=== PATIENT | male | born 1995 | race African-American/Black ===

== ENCOUNTER 2016-10-12 08:08 | Emergency (ER) | payer SELFPAY ==
[~2016-10-12] VITALS: Ht 182.9 cm; Wt 108.0 kg
[~2016-10-12 08:08] MED LIST: IBUP-232 PO
[2016-10-12 08:10] VITALS: BP 124/83; PULSE 74; RESP 15; TEMP 98.2; O2SAT 96
[2016-10-12] MEDS ORDERED: SODIUM CHLOR 0.9% 1000 ML INJ 1,000 ML IV SCH (08:23)
--- NOTE | 2016-10-12 08:27 | PD ---
HPI Chief Complaint: Syncope/Near-Syncope Time Seen by Provider: 08:20 Travel History International Travel<30 days: No Contact w/Intl Traveler<30days: No Traveled to known affect area: No History of Present Illness HPI 21-year-old male here for evaluation of nausea, vomiting, diarrhea, abdominal pain, and syncopal episode. The patient states that while getting ready for work this morning he was using the restroom and while having a bowel movement he had a syncopal episode. He reports that he woke up on the ground. He denies sustaining any injury. No head or neck pain. He states that he walked into another room and had another syncopal episode, again not sustaining any injury. He is complaining of lower abdominal discomfort which is moderate, worse with movement and palpation. No history of abdominal surgeries. No known history of cardiac disease. No history of syncopal episodes. No fevers, chills, cough, or recent illness. PFSH Past Medical History Anxiety: Yes Diabetes: No Diminished Hearing: No Immunizations Current: Yes Social History Alcohol Use: No Tobacco Use: No Substance Use: No Allergies-Medications (Allergen,Severity, Reaction): Coded Allergies: Mushroom (Verified Allergy, Severe, Nausea/Vomiting, 10/12/16) Reported Meds & Prescriptions Reported Meds & Active Scripts Active No Active Prescriptions or Reported Medications Review of Systems Except as stated in HPI: all other systems reviewed are Neg Physical Exam Narrative GENERAL: Well-developed, well-nourished, comfortable, no acute distress. SKIN: Warm and dry. No lacerations, abrasions, or ecchymosis. HEAD: Atraumatic. Normocephalic. EYES: Pupils equal, round, 3 mm, reactive to light. No scleral icterus. No injection or drainage. ENT: Mucous membranes pink and moist. NECK: Trachea midline. No JVD. No midline cervical spine step-off or tenderness. CARDIOVASCULAR: Regular rate and rhythm. RESPIRATORY: No accessory muscle use. Clear to auscultation. Breath sounds equal bilaterally. GASTROINTESTINAL: Abdomen soft, nondistended. Mild lower abdominal tenderness without peritoneal signs. Rest of abdomen is soft and nontender. Normal bowel sounds. MUSCULOSKELETAL: No obvious deformities. No clubbing. No cyanosis. No edema. NEUROLOGICAL: Awake and alert. No obvious cranial nerve deficits. Motor grossly within normal limits. Normal speech. PSYCHIATRIC: Appropriate mood and affect; insight and judgment normal. Data Data Last Documented VS Vital Signs Date Time Temp Pulse Resp B/P Pulse Ox O2 Delivery O2 Flow Rate FiO2 10/12/16 08:29 67 16 119/61 99 Room Air 10/12/16 08:10 98.2 Orders Electrocardiogram (10/12/16 ) Ckmb (Isoenzyme) Profile (10/12/16 08:23) Complete Blood Count With Diff (10/12/16 08:23) Comprehensive Metabolic Panel (10/12/16 08:23) Magnesium (Mg) (10/12/16 08:23) Prothrombin Time / Inr (Pt) (10/12/16 08:23) Act Partial Throm Time (Ptt) (10/12/16 08:23) Troponin I (10/12/16 08:23) Lipase (10/12/16 08:23) Chest, Single Ap (10/12/16 08:23) Ecg Monitoring (10/12/16 08:23) Iv Access Insert/Monitor (10/12/16 08:23) Oximetry (10/12/16 08:23) Sodium Chloride 0.9% Flush (Ns Flush) (10/12/16 08:30) Ct Abd/Pel W Iv Contrast(Rout) (10/12/16 08:23) Ondansetron Inj (Zofran Inj) (10/12/16 08:30) Sodium Chlor 0.9% 1000 Ml Inj (Ns 1000 M (10/12/16 08:23) Ketorolac Inj (Toradol Inj) (10/12/16 08:30) Ct Brain W/O Iv Contrast(Rout) (10/12/16 ) Influenzae A/B Antigen (10/12/16 08:25) Iohexol 350 Inj (Omnipaque 350 Inj) (10/12/16 09:49) CKMB (10/12/16 09:40) CKMB% (10/12/16 09:40) Labs Laboratory Tests Test 10/12/16 10/12/16 08:40 09:40 White Blood Count 7.1 TH/MM3 Red Blood Count 5.00 MIL/MM3 Hemoglobin 13.6 GM/DL Hematocrit 40.8 % Mean Corpuscular Volume 81.7 FL Mean Corpuscular Hemoglobin 27.1 PG Mean Corpuscular Hemoglobin 33.2 % Concent Red Cell Distribution Width 13.9 % Platelet Count 256 TH/MM3 Mean Platelet Volume 7.8 FL Neutrophils (%) (Auto) 43.4 % Lymphocytes (%) (Auto) 43.1 % Monocytes (%) (Auto) 10.2 % Eosinophils (%) (Auto) 2.8 % Basophils (%) (Auto) 0.5 % Neutrophils # (Auto) 3.1 TH/MM3 Lymphocytes # (Auto) 3.1 TH/MM3 Monocytes # (Auto) 0.7 TH/MM3 Eosinophils # (Auto) 0.2 TH/MM3 Basophils # (Auto) 0.0 TH/MM3 CBC Comment DIFF FINAL Differential Comment Prothrombin Time 10.5 SEC Prothromb Time International 1.0 RATIO Ratio Activated Partial 27.3 SEC Thromboplast Time Sodium Level 140 MEQ/L Potassium Level 4.1 MEQ/L Chloride Level 106 MEQ/L Carbon Dioxide Level 26.2 MEQ/L Anion Gap 8 MEQ/L Blood Urea Nitrogen 20 MG/DL Creatinine 0.87 MG/DL Estimat Glomerular Filtration 134 ML/MIN Rate Random Glucose 102 MG/DL Calcium Level 8.0 MG/DL Magnesium Level 1.9 MG/DL Total Bilirubin 0.1 MG/DL Aspartate Amino Transf 19 U/L (AST/SGOT) Alanine Aminotransferase 25 U/L (ALT/SGPT) Alkaline Phosphatase 44 U/L Total Creatine Kinase 296 U/L Troponin I LESS THAN 0.02 NG/ML Total Protein 6.0 GM/DL Albumin 3.2 GM/DL Lipase 112 U/L MDM Medical Decision Making Medical Screen Exam Complete: Yes Emergency Medical Condition: Yes Medical Record Reviewed: Yes Interpretation(s) EKG: Sinus, rate 67, normal axis, normal intervals, early repolarization, no acute ischemic abnormality, unchanged from prior Differential Diagnosis Gastroenteritis, dehydration, viral illness, metabolic abnormality, intracranial abnormality, appendicitis, dysrhythmia, vasovagal syncope Narrative Course Vital signs show heart rate 74, blood pressure 124/83, pulse ox 99% on room air , oral temp of 98.2F. CBC is unremarkable. CMP is unremarkable. Lipase is 112. Chest x-ray shows no acute disease. CT head shows no acute intracranial abnormality. CT abdomen pelvis is within normal limits, no acute findings. The patient was made aware of all findings. He is resting comfortably. He is stable for discharge home with outpatient follow-up with a primary care physician this week. He was informed on when to return to the emergency department. He verbalizes understanding and agreement with plan. Diagnosis Primary Impression: Gastroenteritis Additional Impression: Syncope Qualified Code: R55 - Syncope, unspecified syncope type Referrals: Primary Care Physician 3 days Additional Instructions: Follow-up with a primary care physician this week. Stay hydrated with plenty of fluids. Return to the emergency room if worsening symptoms or any other concerns. Scripts No Active Prescriptions or Reported Meds Disposition: 01 DISCHARGE HOME Condition: Stable Raul Reno MD Oct 12, 2016 08:27
[2016-10-12 08:29] VITALS: BP 119/61; PULSE 67; RESP 16; O2SAT 99
[2016-10-12] MEDS ORDERED: KETOROLAC TROMETHAMINE 30 MG/ML (IVP) VIAL IV PUSH ONE (08:30)
[2016-10-12] MEDS ORDERED: SODIUM CHLORIDE 0.9% FLUSH 5 ML FLUSH IVF PRN (08:30)
[2016-10-12] MEDS ORDERED: ONDANSETRON HCL 4 MG/2 ML VIAL IVP ONE (08:30)
--- NOTE | 2016-10-12 08:57 | RADRPT ---
EXAM DATE/TIME: 10/12/2016 08:43 [facility] COMPARISON: CHEST SINGLE AP, August 05, 2016, 8:53. INDICATIONS : Syncope, Vomiting, Fatigue, Chest Pain. MEDICAL HISTORY : None. SURGICAL HISTORY : None. ENCOUNTER: Initial ACUITY: 1 day PAIN SCORE: 2/10 LOCATION: Bilateral chest FINDINGS: Portable AP view of the chest demonstrates a normal-sized cardiac silhouette. No effusion, consolidat ion, or pneumothorax is visualized. The bones and soft tissues demonstrate no acute abnormality. CONCLUSION: No acute cardiopulmonary abnormality is identified. Jose Javier MD on October 12, 2016 at 8:55 Board Certified Radiologist. This report was verified electronically.
[2016-10-12 09:20] LABS: AUTOMATED NEUTROPHIL # 3.1 TH/MM3 (1.8-7.7); BASOPHIL % 0.5 % (0.0-2.0); EOSINOPHIL # 0.2 TH/MM3 (0-0.4); EOSINOPHIL % 2.8 % (0.0-4.0); HEMATOCRIT 40.8 % (39.0-51.0); HEMO FLAGS DIFF FINAL; LYMPH % 43.1 % (9.0-44.0); LYMPHOCYTE # 3.1 TH/MM3 (1.0-4.8); MEAN CELL VOLUME 81.7 FL (80.0-100.0); MEAN CORPUSCULAR HEMOGLOBIN 27.1 PG (27.0-34.0); MEAN CORPUSCULAR HGB CONC 33.2 % (32.0-36.0); MONO % 10.2 % (0.0-8.0); NEUT % 43.4 % (16.0-70.0); PLATELET COUNT 256 TH/MM3 (150-450); RED CELL DISTRIBUTION WIDTH 13.9 % (11.6-17.2); WHITE BLOOD COUNT 7.1 TH/MM3 (4.0-11.0)
[2016-10-12 09:30] LABS: APTT (PATIENT) 27.3 SEC (24.3-30.1); PROTHROMBIN TIME - PATIENT 10.5 SEC (9.8-11.6)
[2016-10-12] MEDS ORDERED: IOHEXOL 350 MG/ML 10 ML VIAL (for RAD DIAG) IV ONE (09:49)
--- NOTE | 2016-10-12 10:00 | RADRPT ---
EXAM DATE/TIME: 10/12/2016 09:18 [facility] COMPARISON: No previous studies available for comparison. INDICATIONS : Syncopal episode with nausea and vomiting. RADIATION DOSE: 57.83 CTDIvol (mGy) MEDICAL HISTORY : None SURGICAL HISTORY : None. ENCOUNTER: Initial ACUITY: 1 day PAIN SCALE: 0/10 LOCATION: cranial TECHNIQUE: Multiple contiguous axial images were obtained of the head. Using automated exposure control and adj ustment of the mA and/or kV according to patient size, radiation dose was kept as low as reasonably a chievable to obtain optimal diagnostic quality images. FINDINGS: CEREBRUM: The ventricles are normal for age. No evidence of midline shift, mass lesion, hemorrhage or acute in farction. No extra-axial fluid collections are seen. POSTERIOR FOSSA: The cerebellum and brainstem are intact. The 4th ventricle is midline. The cerebellopontine angle i s unremarkable. EXTRACRANIAL: The visualized portion of the orbits is intact. SKULL: The calvaria is intact. No evidence of skull fracture. CONCLUSION: No acute intracranial abnormality is identified. Jose Javier MD on October 12, 2016 at 9:57 Board Certified Radiologist. This report was verified electronically.
--- NOTE | 2016-10-12 10:03 | RADRPT ---
EXAM DATE/TIME: 10/12/2016 09:22 [facility] COMPARISON: No previous studies available for comparison. INDICATIONS : Abdominal pain, nausea and vomiting. IV CONTRAST: 88 cc Omnipaque 350 (iohexol) IV ORAL CONTRAST: No oral contrast ingested. RADIATION DOSE: 11.85 CTDIvol (mGy) MEDICAL HISTORY : None SURGICAL HISTORY : None. ENCOUNTER: Initial ACUITY: 1 day PAIN SCALE: 5/10 LOCATION: abdomen. TECHNIQUE: Volumetric scanning of the abdomen and pelvis was performed. Using automated exposure control and ad justment of the mA and/or kV according to patient size, radiation dose was kept as low as reasonably achievable to obtain optimal diagnostic quality images. FINDINGS: LOWER LUNGS: The visualized lower lungs are clear. LIVER: Homogeneous density without lesion. There is no dilation of the biliary tree. No calcified gallston es. SPLEEN: Normal size without lesion. PANCREAS: Within normal limits. KIDNEYS: Normal in size and shape. There is no mass, stone or hydronephrosis. ADRENAL GLANDS: Within normal limits. VASCULAR: There is no aortic aneurysm. BOWEL/MESENTERY: The stomach, small bowel, and colon demonstrate no acute abnormality. There is no free intraperitone al air or fluid. ABDOMINAL WALL: Within normal limits. RETROPERITONEUM: There is no lymphadenopathy. BLADDER: No wall thickening or mass. REPRODUCTIVE: Within normal limits. INGUINAL: There is no lymphadenopathy or hernia. MUSCULOSKELETAL: Within normal limits for patient age. CONCLUSION: Examination is within normal limits. No acute finding is identified. Jose Javier MD on October 12, 2016 at 9:59 Board Certified Radiologist. This report was verified electronically.
[2016-10-12 10:21] LABS: BLOOD UREA NITROGEN 20 MG/DL (7-18)
[2016-10-12 10:22] LABS: ANION GAP 8 MEQ/L (5-15); AST (GOT) 19 U/L (15-37); BICARBONATE 26.2 MEQ/L (21.0-32.0); CHLORIDE 106 MEQ/L (98-107); MAGNESIUM 1.9 MG/DL (1.5-2.5); POTASSIUM 4.1 MEQ/L (3.5-5.1); SODIUM (NA) 140 MEQ/L (136-145)
[2016-10-12 10:23] LABS: ALT (GPT) 25 U/L (12-78); GLOMERULAR FILTRATION RATE 134 ML/MIN (>89); TOTAL BILIRUBIN ADULT 0.1 MG/DL (0.2-1.0)
[2016-10-12 10:25] LABS: ALKALINE PHOSPHATASE 44 U/L (45-117); CREATINE KINASE 296 U/L (39-308)
--- NOTE | 2016-10-12 19:36 | EKG ---
Date Performed: 10/12/2016 Time Performed: 09:07:38 PTAGE: 21 years EKG: Sinus rhythm ST ELEVATION, PROBABLY EARLY REPOLARIZATION Since previous tracing, no significant change noted [facility] ECG PREVIOUS TRACING : 08/05/2016 08.35 DOCTOR: Nicholas Knapp Interpretating Date/Time 10/12/2016 19:35:17
== END 2016-10-12 11:04 | disposition home or self-care (01) ==
LOC: NEPC 08:08
DX: K52.9 Noninfective gastroenteritis and colitis, unspecified (principal); R55 Syncope and collapse
CPT/HCPCS: 70450; 71010; 74177; 80053; 82550; 82552; 83690; 83735; 84484; 85025; 85610; 85730; 87804; 93005; 96361; 96374; 96375; 99284; J1885; J2405; J7030; Q9967

== ENCOUNTER 2016-10-24 13:07 | Emergency (ER) | payer SELFPAY ==
[~2016-10-24] VITALS: Ht 182.9 cm; Wt 105.0 kg
[2016-10-24 13:08] VITALS: BP 133/86; PULSE 80; RESP 20; TEMP 98; O2SAT 98
[2016-10-24 13:40] VITALS: O2SAT 99
--- NOTE | 2016-10-24 13:47 | PD ---
HPI Chief Complaint: Abdominal Pain Time Seen by Provider: 13:47 Travel History International Travel<30 days: No Contact w/Intl Traveler<30days: No Traveled to known affect area: No History of Present Illness HPI 21-year-old male presents to the emergency department for evaluation of lower abdominal pain that began yesterday. The patient states that yesterday afternoon he started to have lower abdominal pain. States that he had nausea and a few episodes of emesis. States that he had one episode of blood-tinged emesis yesterday. States that he has had no further episodes of bloody emesis. States that the pain is better today but did continue and he was sent home by his job. He denies any fever, chills, diarrhea, constipation, bloody stool, dysuria, hematuria, cough or cold symptoms. The patient states that he frequently vomits after eating and experiences reflux symptoms after eating, has been ongoing for several years. States he was here about 2 weeks ago for abdominal pain which resolved until yesterday. No other complaints. Denies alcohol or drug use. PFSH Past Medical History Anxiety: Yes Diabetes: No Diminished Hearing: No Respiratory: Yes (CHILDHOOD ASTHMA ) Immunizations Current: Yes Social History Alcohol Use: Yes (OCCASIONALLY) Tobacco Use: No Substance Use: No Allergies-Medications (Allergen,Severity, Reaction): Coded Allergies: Mushroom (Verified Allergy, Severe, Nausea/Vomiting, 10/12/16) Reported Meds & Prescriptions Reported Meds & Active Scripts Active Omeprazole 20 Mg Tab 20 Mg PO DAILY 14 Days Review of Systems Except as stated in HPI: all other systems reviewed are Neg Physical Exam Narrative GENERAL: Well-nourished and well-developed pleasant male patient in no acute distress who is nontoxic appearing. SKIN: Warm and dry. HEAD: Normocephalic and atraumatic. EYES: No injection, drainage, or hyphema noted. PERRLA. EOMI. ENT: No nasal drainage noted. Oropharynx is clear. NECK: Supple and the trachea is midline. CARDIOVASCULAR: Regular rate and rhythm. RESPIRATORY: Breath sounds are equal bilaterally with no accessory muscle use, wheezing, rhonchi, or crackles. GASTROINTESTINAL: Mild periumbilical tenderness to palpation. Negative McBurney 's point. Negative Feliciano's sign. Abdomen is soft and nondistended. MUSCULOSKELETAL: No obvious deformities, swelling, cyanosis, or ecchymosis is present throughout the upper and lower extremities. Patient has full range of motion without any signs of neurovascular compromise. NEUROLOGICAL: Awake, alert, and oriented. Normal speech and gait. Cranial nerves are grossly intact. Data Data Last Documented VS Vital Signs Date Time Temp Pulse Resp B/P Pulse Ox O2 Delivery O2 Flow Rate FiO2 10/24/16 13:08 98.0 80 20 133/86 98 Room Air Orders Complete Blood Count With Diff (10/24/16 13:41) Comprehensive Metabolic Panel (10/24/16 13:41) Lipase (10/24/16 13:41) Urinalysis - C+S If Indicated (10/24/16 13:41) Iv Access Insert/Monitor (10/24/16 13:41) Ecg Monitoring (10/24/16 13:41) Oximetry (10/24/16 13:41) Abdomen, Flat & Upright (10/24/16 ) Labs Laboratory Tests Test 10/24/16 10/24/16 14:10 14:15 White Blood Count 6.9 TH/MM3 Red Blood Count 5.05 MIL/MM3 Hemoglobin 13.5 GM/DL Hematocrit 41.9 % Mean Corpuscular Volume 83.0 FL Mean Corpuscular Hemoglobin 26.6 PG Mean Corpuscular Hemoglobin 32.1 % Concent Red Cell Distribution Width 14.2 % Platelet Count 261 TH/MM3 Mean Platelet Volume 7.3 FL Neutrophils (%) (Auto) 41.7 % Lymphocytes (%) (Auto) 46.2 % Monocytes (%) (Auto) 9.6 % Eosinophils (%) (Auto) 2.0 % Basophils (%) (Auto) 0.5 % Neutrophils # (Auto) 2.9 TH/MM3 Lymphocytes # (Auto) 3.2 TH/MM3 Monocytes # (Auto) 0.7 TH/MM3 Eosinophils # (Auto) 0.1 TH/MM3 Basophils # (Auto) 0.0 TH/MM3 CBC Comment DIFF FINAL Differential Comment Sodium Level 140 MEQ/L Potassium Level 3.9 MEQ/L Chloride Level 103 MEQ/L Carbon Dioxide Level 28.8 MEQ/L Anion Gap 8 MEQ/L Blood Urea Nitrogen 17 MG/DL Creatinine 1.14 MG/DL Estimat Glomerular Filtration 98 ML/MIN Rate Random Glucose 92 MG/DL Calcium Level 8.9 MG/DL Total Bilirubin 0.1 MG/DL Aspartate Amino Transf 35 U/L (AST/SGOT) Alanine Aminotransferase 59 U/L (ALT/SGPT) Alkaline Phosphatase 42 U/L Total Protein 7.1 GM/DL Albumin 3.9 GM/DL Lipase 107 U/L Urine Color YELLOW Urine Turbidity CLEAR Urine pH 8.0 Urine Specific [place] 1.019 Urine Protein NEG mg/dL Urine Glucose (UA) NEG mg/dL Urine Ketones NEG mg/dL Urine Occult Blood NEG Urine Nitrite NEG Urine Bilirubin NEG Urine Urobilinogen LESS THAN 2.0 MG/DL Urine Leukocyte Esterase NEG Urine WBC LESS THAN 1 /hpf Urine Squamous Epithelial <1 /hpf Cells Microscopic Urinalysis Comment CULT NOT INDICATED MDM Medical Decision Making Medical Screen Exam Complete: Yes Emergency Medical Condition: Yes Differential Diagnosis Gastritis versus GERD versus PUD versus colitis Narrative Course 21-year-old male presents to the emergency department for evaluation of abdominal pain with nausea and vomiting and one episode of hematemesis. Patient is afebrile, vital signs are stable. The patient appears very well overall. He has some mild periumbilical abdominal tenderness but overall abdominal examination is benign. He was seen here in our emergency department 12 days ago for similar symptoms and had unremarkable lab work and CT imaging of the abdomen and pelvis. IV access is obtained, labs were drawn and sent. CBC is unremarkable. CMP is unremarkable. Urinalysis is unremarkable. Abdominal x-ray is negative Patient has remained stable without complaint here in the emergency department. I suspect that the patient has gastric reflux and gastroenteritis. He'll be prescribed omeprazole. Stressed importance of outpatient follow-up with a primary care or occupational therapy program director if the symptoms persist. Patient verbalizes understanding and agreement with treatment plan. I discussed the case with my attending physician Dr. Fernández who is aware of the patients history, physical examination findings, and treatment plan. Diagnosis Primary Impression: Gastroenteritis Referrals: [facility] [employer]anner Primary Care Physician Patient Instructions: Abdominal Pain (ED), General Instructions Additional Instructions: Take medications as prescribed. Follow-up with your Primary Care Physician or a Traffic And Transport Planner if symptoms persist. Return to the ED for any acute worsening of symptoms. Med/Other Pt SpecificInfo: Prescription(s) given Scripts Omeprazole 20 Mg Tab20 Mg PO DAILY 14 Days Ref 0 Prov:Shereen Fernández MD 10/24/16 Disposition: 01 DISCHARGE HOME Condition: Stable Niru Berger 16, 2017 13:47
--- NOTE | 2016-10-24 14:22 | RADRPT ---
EXAM DATE/TIME: 10/24/2016 14:04 [facility] COMPARISON: No previous studies available for comparison. INDICATIONS : Patient has been vomiting blood for a day and a half. MEDICAL HISTORY : None. SURGICAL HISTORY : None. ENCOUNTER: Initial ACUITY: 2 days PAIN SCORE: 7/10 LOCATION: Left Lower quadrant FINDINGS: Supine and upright views of the abdomen were performed. The abdominal bowel gas pattern is normal. No air fluid levels are seen. No abnormal masses, calcifications, or organomegaly is seen. The visu alized lower lungs are clear. No evidence of free intraperitoneal gas. The osseous structures are u nremarkable. Mild curvature of the lumbar spine may be positional in nature. CONCLUSION: Normal bowel gas pattern. Silvio Hills Jr., MD on October 24, 2016 at 14:19 Board Certified Radiologist. This report was verified electronically.
[2016-10-24 14:26] LABS: AUTOMATED NEUTROPHIL # 2.9 TH/MM3 (1.8-7.7); BASOPHIL % 0.5 % (0.0-2.0); EOSINOPHIL # 0.1 TH/MM3 (0-0.4); HEMATOCRIT 41.9 % (39.0-51.0); HEMO FLAGS DIFF FINAL; LYMPH % 46.2 % (9.0-44.0); LYMPHOCYTE # 3.2 TH/MM3 (1.0-4.8); MEAN CORPUSCULAR HEMOGLOBIN 26.6 PG (27.0-34.0); MEAN CORPUSCULAR HGB CONC 32.1 % (32.0-36.0); MONO % 9.6 % (0.0-8.0); NEUT % 41.7 % (16.0-70.0); PLATELET COUNT 261 TH/MM3 (150-450); RED BLOOD COUNT 5.05 MIL/MM3 (4.50-5.90); RED CELL DISTRIBUTION WIDTH 14.2 % (11.6-17.2); WHITE BLOOD COUNT 6.9 TH/MM3 (4.0-11.0)
[2016-10-24 14:30] LABS: BLOOD, URINE NEG (NEG); GLUCOSE,URINE NEG (NEG); KETONE, URINE NEG (NEG); NITRITE,URINE NEG (NEG); SQUAMOUS EPITHELIAL CELL URINE <1 /hpf (0-5); URINE COLOR YELLOW (YELLW/STRAW)
[2016-10-24 14:41] LABS: COMMENT (UR) CULT NOT INDICATED; CULTURE IF INDICATED CULT NOT INDICATED
[2016-10-24 14:42] LABS: ANION GAP 8 MEQ/L (5-15); AST (GOT) 35 U/L (15-37); BICARBONATE 28.8 MEQ/L (21.0-32.0); BLOOD UREA NITROGEN 17 MG/DL (7-18); CHLORIDE 103 MEQ/L (98-107); GLOMERULAR FILTRATION RATE 98 ML/MIN (>89); POTASSIUM 3.9 MEQ/L (3.5-5.1); SODIUM (NA) 140 MEQ/L (136-145)
[2016-10-24 14:45] LABS: ALKALINE PHOSPHATASE 42 U/L (45-117); ALT (GPT) 59 U/L (12-78); TOTAL BILIRUBIN ADULT 0.1 MG/DL (0.2-1.0)
--- NOTE | 2016-10-24 14:48 | PD ---
Physical Exam Date Seen by Provider: Oct 24, 2016 Time Seen by Provider: 14:00 Narrative I, Dr. Fernández, have reviewed the advance practice practitioner's documentation and am in agreement, met with the patient face to face, made the diagnosis, and the medical decision making was done by me. *My assessment and Findings: Patient seen and evaluated with PA, please see PA further details. Here with nausea, vomiting, small amount of blood, epigastric and left upper quadrant pain. Worse with eating. Mildly tender to palpation of the epigastric area and left upper quadrant without guarding or rebound. Abdomen is otherwise soft. Patient was given IV fluids and Zofran in the ER and on reevaluation at 2:45 PM, is sitting up, feeling improved. Last 24 hours Impressions Abdomen X-Ray 10/24/16 0000 Signed Impressions: Service Date/Time: October 14:04 - CONCLUSION: Normal bowel gas pattern. Silvio Hills Jr., MD Laboratory Tests Test 10/24/16 14:10 Mean Corpuscular Hemoglobin 26.6 PG (27.0-34.0) Lymphocytes (%) (Auto) 46.2 % (9.0-44.0) Monocytes (%) (Auto) 9.6 % (0.0-8.0) Total Bilirubin 0.1 MG/DL (0.2-1.0) Alkaline Phosphatase 42 U/L (45-117) Abdomen is benign and I do not suspect an acute intra-abdominal process. Lab work is otherwise unremarkable for significant dehydration or metabolic issues. Chest x-ray did not reveal any signs of obstruction or perforation. At this point, plan would be to release the patient with further symptomatic relief or gastritis. Follow-up with primary care physician. Return for any worsening in symptoms as needed. Plan was discussed with him and he states understanding. Data Data Last Documented VS Vital Signs Date Time Temp Pulse Resp B/P Pulse Ox O2 Delivery O2 Flow Rate FiO2 10/24/16 13:08 98.0 80 20 133/86 98 Room Air Orders Complete Blood Count With Diff (10/24/16 13:41) Comprehensive Metabolic Panel (10/24/16 13:41) Lipase (10/24/16 13:41) Urinalysis - C+S If Indicated (10/24/16 13:41) Iv Access Insert/Monitor (10/24/16 13:41) Ecg Monitoring (10/24/16 13:41) Oximetry (10/24/16 13:41) Abdomen, Flat & Upright (10/24/16 ) Labs Laboratory Tests Test 10/24/16 10/24/16 14:10 14:15 White Blood Count 6.9 TH/MM3 Red Blood Count 5.05 MIL/MM3 Hemoglobin 13.5 GM/DL Hematocrit 41.9 % Mean Corpuscular Volume 83.0 FL Mean Corpuscular Hemoglobin 26.6 PG Mean Corpuscular Hemoglobin 32.1 % Concent Red Cell Distribution Width 14.2 % Platelet Count 261 TH/MM3 Mean Platelet Volume 7.3 FL Neutrophils (%) (Auto) 41.7 % Lymphocytes (%) (Auto) 46.2 % Monocytes (%) (Auto) 9.6 % Eosinophils (%) (Auto) 2.0 % Basophils (%) (Auto) 0.5 % Neutrophils # (Auto) 2.9 TH/MM3 Lymphocytes # (Auto) 3.2 TH/MM3 Monocytes # (Auto) 0.7 TH/MM3 Eosinophils # (Auto) 0.1 TH/MM3 Basophils # (Auto) 0.0 TH/MM3 CBC Comment DIFF FINAL Differential Comment Sodium Level 140 MEQ/L Potassium Level 3.9 MEQ/L Chloride Level 103 MEQ/L Carbon Dioxide Level 28.8 MEQ/L Anion Gap 8 MEQ/L Blood Urea Nitrogen 17 MG/DL Creatinine 1.14 MG/DL Estimat Glomerular Filtration 98 ML/MIN Rate Random Glucose 92 MG/DL Calcium Level 8.9 MG/DL Total Bilirubin 0.1 MG/DL Aspartate Amino Transf 35 U/L (AST/SGOT) Alanine Aminotransferase 59 U/L (ALT/SGPT) Alkaline Phosphatase 42 U/L Total Protein 7.1 GM/DL Albumin 3.9 GM/DL Lipase 107 U/L Urine Color YELLOW Urine Turbidity CLEAR Urine pH 8.0 Urine Specific [place] 1.019 Urine Protein NEG mg/dL Urine Glucose (UA) NEG mg/dL Urine Ketones NEG mg/dL Urine Occult Blood NEG Urine Nitrite NEG Urine Bilirubin NEG Urine Urobilinogen LESS THAN 2.0 MG/DL Urine Leukocyte Esterase NEG Urine WBC LESS THAN 1 /hpf Urine Squamous Epithelial <1 /hpf Cells Microscopic Urinalysis Comment CULT NOT INDICATED MDM Medical Record Reviewed: Yes Supervised Visit with CHELY: Yes Diagnosis Primary Impression: Gastroenteritis Scripts No Active Prescriptions or Reported Meds Disposition: 01 DISCHARGE HOME Condition: Stable Shereen Fernández MD Oct 24, 2016 14:48
[2016-10-24] MEDS ORDERED: OMEP20TA PO (14:54)
== END 2016-10-24 16:18 | disposition home or self-care (01) ==
LOC: NEPC 13:07
DX: K52.9 Noninfective gastroenteritis and colitis, unspecified (principal); R11.2 Nausea with vomiting, unspecified
CPT/HCPCS: 74020; 80053; 81001; 83690; 85025; 99284

== ENCOUNTER 2016-11-12 20:43 | Emergency (ER) | payer OTHER ==
[~2016-11-12] VITALS: Ht 182.9 cm; Wt 104.0 kg
[~2016-11-12 20:43] MED LIST changes: -IBUP-232 PO; +OMEP20TA PO
[2016-11-12 20:46] VITALS: BP 145/96; PULSE 82; RESP 18; TEMP 98; O2SAT 98
[2016-11-12] MEDS ORDERED: ACETAMINOPHEN/HYDROcodone 325 MG/5 MG TAB PO ONE (21:15)
[2016-11-12] MEDS ORDERED: TETANUS/DIPHTHERIA TOXOID ADULT 0.5 ML VIAL IM ONE (21:15)
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
[2016-11-12] MEDS ORDERED: BACL10TA PO (22:36)
[2016-11-12] MEDS ORDERED: IBUP800T23 PO (22:36)
== END 2016-11-12 23:03 | disposition home or self-care (01) ==
LOC: NETRI 20:43
DX: S16.1XXA Strain of muscle, fascia and tendon at neck level, initial encounter (principal); S40.022A Contusion of left upper arm, initial encounter; V49.40XA Driver injured in collision with unspecified motor vehicles in traffic accident, initial encounter; Y92.488 Other paved roadways as the place of occurrence of the external cause; Z23 Encounter for immunization
CPT/HCPCS: 72125; 73060; 73090; 73130; 90471; 90714

== ENCOUNTER 2016-11-26 17:34 | Emergency (ER) | payer OTHER ==
[~2016-11-26] VITALS: Ht 182.9 cm; Wt 100.0 kg
[~2016-11-26 17:34] MED LIST changes: +BACL10TA PO; +IBUP800T23 PO; -OMEP20TA PO
[2016-11-26 17:40] VITALS: BP 131/83; PULSE 80; RESP 16; TEMP 98.8; O2SAT 99
[2016-11-26 21:00] VITALS: BP 117/87; PULSE 79; RESP 16; O2SAT 98
[2016-11-26] MEDS ORDERED: oxyCODONE/ACETAMINOPHEN 5 MG/325 MG TAB PO ONE (22:00)
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
[2016-11-26] MEDS ORDERED: SODIUM CHLOR 0.9% 1000 ML INJ 1,000 ML IV SCH (23:04)
[2016-11-26] MEDS ORDERED: SODIUM CHLORIDE 0.9% FLUSH 10 ML FLUSH IV FLUSH PRN (23:15)
[2016-11-26] MEDS ORDERED: ONDANSETRON HCL 4 MG/2 ML VIAL IVP ONE (23:15)
[2016-11-27 00:28] LABS: AUTOMATED NEUTROPHIL # 3.5 TH/MM3 (1.8-7.7); BASOPHIL % 0.3 % (0.0-2.0); EOSINOPHIL # 0.2 TH/MM3 (0-0.4); HEMATOCRIT 40.7 % (39.0-51.0); HEMO FLAGS DIFF FINAL; LYMPH % 49.9 % (9.0-44.0); LYMPHOCYTE # 4.3 TH/MM3 (1.0-4.8); MEAN CELL VOLUME 81.1 FL (80.0-100.0); MEAN CORPUSCULAR HEMOGLOBIN 26.9 PG (27.0-34.0); MEAN CORPUSCULAR HGB CONC 33.1 % (32.0-36.0); MONO % 7.1 % (0.0-8.0); NEUT % 40.7 % (16.0-70.0); PLATELET COUNT 286 TH/MM3 (150-450); RED BLOOD COUNT 5.02 MIL/MM3 (4.50-5.90); RED CELL DISTRIBUTION WIDTH 13.9 % (11.6-17.2); WHITE BLOOD COUNT 8.7 TH/MM3 (4.0-11.0)
[2016-11-27 00:49] LABS: ALT (GPT) 30 U/L (12-78); ANION GAP 8 MEQ/L (5-15); AST (GOT) 22 U/L (15-37); BICARBONATE 29.3 MEQ/L (21.0-32.0); BLOOD UREA NITROGEN 23 MG/DL (7-18); CHLORIDE 104 MEQ/L (98-107); GLOMERULAR FILTRATION RATE 110 ML/MIN (>89); POTASSIUM 3.5 MEQ/L (3.5-5.1); SODIUM (NA) 141 MEQ/L (136-145)
[2016-11-27 00:52] LABS: ALKALINE PHOSPHATASE 47 U/L (45-117); TOTAL BILIRUBIN ADULT 0.2 MG/DL (0.2-1.0)
[2016-11-27 01:00] VITALS: BP 125/75; PULSE 85; RESP 16; O2SAT 100
[2016-11-27] MEDS ORDERED: KETOROLAC TROMETHAMINE 30 MG/ML (IVP) VIAL IV PUSH ONE (01:00)
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
[2016-11-27] MEDS ORDERED: GADODIAMIDE PF 287 MG/ML 20 ML VIAL (for RAD MRI) IV ONE (01:32)
--- NOTE | 2016-11-27 02:01 | RADRPT ---
EXAM DATE/TIME: 11/27/2016 01:16 [facility] COMPARISON: No previous studies available for comparison. INDICATIONS : Cephalgia. Blurred vision. CONTRAST: 20 cc Omniscan (gadodiamide) IV MEDICAL HISTORY : Asthma. SURGICAL HISTORY : None. ENCOUNTER: Initial ACUITY: 2 weeks PAIN SCORE: 6/10 LOCATION: cranial TECHNIQUE: Multiplanar, multisequence MRI of the brain was performed both prior to and following the administrat ion of paramagnetic contrast. FINDINGS: CEREBRUM: The ventricles are normal for age. No evidence of midline shift, mass lesion, hemorrhage or acute in farction. No extraaxial fluid collections are seen. The pituitary gland and suprasellar cistern are normal in configuration. WHITE MATTER: No significant signal abnormalities are seen in the white matter. POSTERIOR FOSSA: The cerebellum and brainstem are intact. The 4th ventricle is midline. The cerebellopontine angle is unremarkable. The cerebellar tonsils are normal in position. DIFFUSION IMAGING: No focal areas of restricted diffusion are seen. No evidence of acute infarction. EXTRACRANIAL: The visualized portions of the orbits and paranasal sinuses are unremarkable. POST-CONTRAST: No abnormal areas of parenchymal or dural enhancement. No evidence of blood-brain barrier breakdown. CONCLUSION: Normal examination. Flako Hill MD on November 27, 2016 at 1:59 Board Certified Radiologist. This report was verified electronically.
--- NOTE | 2016-11-27 02:28 | PD ---
Physical Exam Narrative Patient was seen by ED physician and signed out to me. Patient states that he wear glasses since he was in high school. Patient does not have glasses with him now. Examination of the eyes shows pupils 2 mm equal reactive. Data Data Last Documented VS Vital Signs Date Time Temp Pulse Resp B/P Pulse Ox O2 Delivery O2 Flow Rate FiO2 11/26/16 17:40 98.8 80 16 131/[address] Brain W/O Iv Contrast(Rout) (11/26/16 ) Oxycodone-Acetamin 5-325 Mg (Percocet (11/26/16 22:00) Complete Blood Count With Diff (11/26/16 23:04) Comprehensive Metabolic Panel (11/26/16 23:04) Urinalysis - C+S If Indicated (11/26/16 23:04) Iv Access Insert/Monitor (11/26/16 23:04) Ecg Monitoring (11/26/16 23:04) Oximetry (11/26/16 23:04) Ondansetron Inj (Zofran Inj) (11/26/16 23:15) Sodium Chlor 0.9% 1000 Ml Inj (Ns 1000 M (11/26/16 23:04) Sodium Chloride 0.9% Flush (Ns Flush) (11/26/16 23:15) Mri Brain W&W/O Contrast (11/27/16 ) Ketorolac Inj (Toradol Inj) (11/27/16 01:00) Gadodiamide Pf Inj (Omniscan Pf Inj) (11/27/16 01:32) Labs Laboratory Tests Test 11/27/16 00:00 White Blood Count 8.7 TH/MM3 Red Blood Count 5.02 MIL/MM3 Hemoglobin 13.5 GM/DL Hematocrit 40.7 % Mean Corpuscular Volume 81.1 FL Mean Corpuscular Hemoglobin 26.9 PG Mean Corpuscular Hemoglobin 33.1 % Concent Red Cell Distribution Width 13.9 % Platelet Count 286 TH/MM3 Mean Platelet Volume 7.4 FL Neutrophils (%) (Auto) 40.7 % Lymphocytes (%) (Auto) 49.9 % Monocytes (%) (Auto) 7.1 % Eosinophils (%) (Auto) 2.0 % Basophils (%) (Auto) 0.3 % Neutrophils # (Auto) 3.5 TH/MM3 Lymphocytes # (Auto) 4.3 TH/MM3 Monocytes # (Auto) 0.6 TH/MM3 Eosinophils # (Auto) 0.2 TH/MM3 Basophils # (Auto) 0.0 TH/MM3 CBC Comment DIFF FINAL Differential Comment Sodium Level 141 MEQ/L Potassium Level 3.5 MEQ/L Chloride Level 104 MEQ/L Carbon Dioxide Level 29.3 MEQ/L Anion Gap 8 MEQ/L Blood Urea Nitrogen 23 MG/DL Creatinine 1.03 MG/DL Estimat Glomerular Filtration 110 ML/MIN Rate Random Glucose 90 MG/DL Calcium Level 8.5 MG/DL Total Bilirubin 0.2 MG/DL Aspartate Amino Transf 22 U/L (AST/SGOT) Alanine Aminotransferase 30 U/L (ALT/SGPT) Alkaline Phosphatase 47 U/L Total Protein 7.2 GM/DL Albumin 3.9 GM/DL MDM Supervised Visit with CHELY: No Interpretation(s) Last Impressions Brain MRI 11/27/16 0000 Signed Impressions: Service Date/Time: Sunday, November 27, 2016 01:16 - CONCLUSION: Normal examination. Flako Hill MD Head CT 11/26/16 0000 Signed Impressions: Service Date/Time: Saturday, November 26, 2016 22:34 - CONCLUSION: Normal examination. Flako Hill MD Diagnosis Primary Impression: Closed head injury Qualified Code: S09.90XA - Closed head injury, initial encounter Additional Impression: Blurred vision Patient Instructions: General Instructions Additional Instruction: Advil Tylenol for headache. Follow up with swing saw operator. Return if worse. Med/Other Pt SpecificInfo: No Meds Exist/No RX given Disposition: DISCHARGE HOME Condition: Stable Saturnino Pate MD Nov 27, 2016 02:28
[2016-11-27 02:49] VITALS: BP 148/75
== END 2016-11-27 02:51 | disposition home or self-care (01) ==
LOC: NEPD 17:34
DX: S09.90XA Unspecified injury of head, initial encounter (principal); H53.8 Other visual disturbances; H53.40 Unspecified visual field defects; Z86.59 Personal history of other mental and behavioral disorders; Z87.09 Personal history of other diseases of the respiratory system; V89.2XXA Person injured in unspecified motor-vehicle accident, traffic, initial encounter
CPT/HCPCS: 70450; 70553; 80053; 85025; 96361; 96374; 99284; A9579; J2405; J7030

== ENCOUNTER 2017-01-19 07:11 | Observation (INO) | payer OTHER ==
[2017-01-19] VITALS (8 sets, daily range): BP systolic 106–148; BP diastolic 55–92; PULSE 57–78; RESP 14–22; TEMP 98–98.4; O2SAT 98–100
[~2017-01-19] VITALS: Ht 182.9 cm; Wt 100.0 kg
[2017-01-19] MEDS ORDERED: SODIUM CHLOR 0.9% 1000 ML INJ 1,000 ML IV ONE (07:39)
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
[2017-01-19] MEDS ORDERED: SODIUM CHLORIDE 0.9% FLUSH 10 ML FLUSH IVF PRN (07:45)
[2017-01-19 08:06] LABS: BASOPHIL % 0.5 % (0.0-2.0); EOSINOPHIL # 0.1 TH/MM3 (0-0.4); EOSINOPHIL % 2.4 % (0.0-4.0); HEMO FLAGS DIFF FINAL; LYMPH % 37.5 % (9.0-44.0); LYMPHOCYTE # 2.3 TH/MM3 (1.0-4.8); MEAN CELL VOLUME 82.3 FL (80.0-100.0); MEAN CORPUSCULAR HEMOGLOBIN 26.7 PG (27.0-34.0); MEAN CORPUSCULAR HGB CONC 32.4 % (32.0-36.0); MONO % 9.9 % (0.0-8.0); NEUT % 49.7 % (16.0-70.0); PLATELET COUNT 273 TH/MM3 (150-450); RED BLOOD COUNT 5.22 MIL/MM3 (4.50-5.90); RED CELL DISTRIBUTION WIDTH 13.8 % (11.6-17.2); WHITE BLOOD COUNT 6.1 TH/MM3 (4.0-11.0)
--- NOTE | 2017-01-19 08:16 | RADRPT ---
EXAM DATE/TIME: 01/19/2017 07:55 [facility] COMPARISON: CT BRAIN W/O CONTRAST, November 26, 2016, 22:34. INDICATIONS : Syncopal episode yesterday. RADIATION DOSE: 45.31 CTDIvol (mGy) MEDICAL HISTORY : Non-responsive. SURGICAL HISTORY : Non-responsive. ENCOUNTER: Initial ACUITY: 1 day PAIN SCALE: 0/10 LOCATION: Bilateral head TECHNIQUE: Multiple contiguous axial images were obtained of the head. Using automated exposure control and adj ustment of the mA and/or kV according to patient size, radiation dose was kept as low as reasonably a chievable to obtain optimal diagnostic quality images. FINDINGS: CEREBRUM: The ventricles are normal for age. No evidence of midline shift, mass lesion, hemorrhage or acute in farction. No extra-axial fluid collections are seen. POSTERIOR FOSSA: The cerebellum and brainstem are intact. The 4th ventricle is midline. The cerebellopontine angle i s unremarkable. EXTRACRANIAL: The visualized portion of the orbits is intact. SKULL: The calvaria is intact. No evidence of skull fracture. CONCLUSION: Negative for an acute process. Francis Veliz MD FACR on January 19, 2017 at 8:14 Board Certified Radiologist. This report was verified electronically.
--- NOTE | 2017-01-19 08:17 | RADRPT ---
EXAM DATE/TIME: 01/19/2017 08:03 [facility] COMPARISON: CHEST SINGLE AP, October 12, 2016, 8:43. INDICATIONS : Syncopal episode. MEDICAL HISTORY : Asthma. SURGICAL HISTORY : None. ENCOUNTER: Initial ACUITY: 1 day PAIN SCORE: 0/10 LOCATION: Bilateral chest FINDINGS: A single view of the chest demonstrates the lungs to be symmetrically aerated without evidence of mas s, infiltrate or effusion. The cardiomediastinal contours are unremarkable. Osseous structures are intact. CONCLUSION: No acute disease. Francis Veliz MD FACR on January 19, 2017 at 8:14 Board Certified Radiologist. This report was verified electronically.
[2017-01-19 08:19] LABS: ALT (GPT) 45 U/L (12-78)
[2017-01-19 08:23] LABS: ALKALINE PHOSPHATASE 53 U/L (45-117); CREATINE KINASE 329 U/L (39-308); TOTAL BILIRUBIN ADULT 0.1 MG/DL (0.2-1.0)
[2017-01-19 08:29] LABS: ANION GAP 9 MEQ/L (5-15); AST (GOT) 24 U/L (15-37); BICARBONATE 25.5 MEQ/L (21.0-32.0); BLOOD UREA NITROGEN 20 MG/DL (7-18); CHLORIDE 104 MEQ/L (98-107); GLOMERULAR FILTRATION RATE 118 ML/MIN (>89); POTASSIUM 3.9 MEQ/L (3.5-5.1); SODIUM (NA) 138 MEQ/L (136-145)
[2017-01-19 08:35] LABS: CKMB 2.2 NG/ML (0.5-3.6)
[2017-01-19 10:06] LABS: BLOOD, URINE NEG (NEG); CALCIUM OXALATE CRYSTALS,URINE RARE /hpf; COMMENT (UR) CULT NOT INDICATED; CULTURE IF INDICATED CULT NOT INDICATED; GLUCOSE,URINE NEG (NEG); KETONE, URINE NEG (NEG); MUCUS URINE FEW /lpf (OCC); NITRITE,URINE NEG (NEG); PH, URINE 5.5 (5.0-8.5); SQUAMOUS EPITHELIAL CELL URINE <1 /hpf (0-5); URINE COLOR YELLOW (YELLW/STRAW)
[2017-01-19 10:16] LABS: AMPHETAMINE, URINE NEG (NEG); BARBITURATES, URINE NEG (NEG); COCAINE, URINE NEG (NEG)
[2017-01-19] MEDS ORDERED: NALOXONE HCL 0.4 MG/ML AMP IV PRN (10:45)
[2017-01-19] MEDS ORDERED: SODIUM CHLORIDE 0.9% FLUSH 10 ML FLUSH IV FLUSH PRN (10:45)
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
[2017-01-19] MEDS ORDERED: ACETAMINOPHEN 325 MG TAB PO PRN (12:00)
--- NOTE | 2017-01-19 12:11 | RADRPT ---
EXAM DATE/TIME: 01/19/2017 11:08 [facility] COMPARISON: No previous studies available for comparison. INDICATIONS : Syncope. MEDICAL HISTORY : Syncope. Childhood asthma. Anxiety. SURGICAL HISTORY : None. ENCOUNTER: Initial ACUITY: 1 day PAIN SCORE: 2/10 LOCATION: Bilateral neck PEAK SYSTOLIC VELOCITIES (cm/sec): ICA/CCA RATIO: Right: 0.8 Left: 0.8 ICA: Right: 79 Left: 78 CCA: Right: 106 Left: 116 ECA: Right: 75 Left: 70 VERTEBRAL: Right: 43 antegrade Left: 50 antegrade Elevated flow velocities and ICA/CCA ratios have been found to correlate with increased degrees of vessel stenosis, calculated as percentage of diameter relative to a normal segment of distal ICA/CCA FINDINGS: RIGHT CAROTID: No significant stenosis is visualized. The waveforms are within normal limits. LEFT CAROTID: No significant stenosis is visualized. The waveforms are within normal limits. VERTEBRAL ARTERIES: Antegrade flow is seen in both vertebral arteries. MISCELLANEOUS: Adenopathy is present in the left neck. CONCLUSION: Negative for significant carotid stenosis Adenopathy left neck Francis Veliz MD FACR on January 19, 2017 at 12:08 Board Certified Radiologist. This report was verified electronically.
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
--- NOTE | 2017-01-19 14:57 | ECHRPT ---
Indication: SYNCOPE CONCLUSIONS Mildly dilated left ventricle. The left ventricular systolic function is normal with an estimated ejection fraction in the range of 55-60%. No regional wall motion abnormalities are present. The right ventricle was not well visualized. The aortic valve is not well visualized. Cannot rule out a bicuspid aortic valve or trileaflet valve with partially fused commissure. The pulmonary valve is not well visualized. The inferior vena cava was not well visualized. BP: 124 / 92 HR: 63 Rhythm: Sinus MEASUREMENTS (Male / Female) Normal Values Technical Quality:Good 2D ECHO LV Diastolic Diameter PLAX 5.5 cm 4.2 - 5.9 / 3.9 - 5.3 cm LV Systolic Diameter PLAX 3.8 cm IVS Diastolic Thickness 1.1 cm 0.6 - 1.0 / 0.6 - 0.9 cm LVPW Diastolic Thickness 0.9 cm 0.6 - 1.0 / 0.6 - 0.9 cm LV Relative Wall Thickness 0.3 RV Internal Dim ED PLAX 2.4 cm LA Systolic Diameter LX 3.9 cm 3.0 - 4.0 / 2.7 - 3.8 cm M-MODE Aortic Root Diameter MM 3.1 cm AV Cusp Separation MM 2.4 cm DOPPLER AV Peak Velocity 149.0 cm/s AV Peak Gradient 8.9 mmHg LVOT Peak Velocity 104.0 cm/s LVOT Peak Gradient 4.3 mmHg Mitral E Point Velocity 91.0 cm/s Mitral A Point Velocity 58.1 cm/s Mitral E to A Ratio 1.6 LV E' Lateral Velocity 13.6 cm/s Mitral E to LV E' Lateral Ratio 6.7 LV E' Septal Velocity 9.6 cm/s Mitral E to LV E' Septal Ratio 9.5 TR Peak Velocity 232.0 cm/s TR Peak Gradient 21.5 mmHg FINDINGS LEFT VENTRICLE Mildly dilated left ventricle. The left ventricular systolic function is normal with an estimated ejection fraction in the range of 55-60%. No regional wall motion abnormalities are present. RIGHT VENTRICLE The right ventricle was not well visualized. Normal right ventricular size and systolic function. LEFT ATRIUM The left atrial size is normal. RIGHT ATRIUM The right atrial size is normal. ATRIAL SEPTUM Normal atrial septal thickness without atrial level shunting by limited color doppler interrogation. AORTA The aortic root and proximal ascending aorta are normal in size on limited imaging. MITRAL VALVE Structurally normal mitral valve. No mitral valve stenosis or regurgitation. AORTIC VALVE The aortic valve is not well visualized. Cannot rule out a bicuspid aortic valve or trileaflet valve with partially fused commissure. No aortic valve stenosis or regurgitation. TRICUSPID VALVE Structurally normal tricuspid valve. No tricuspid valve stenosis or regurgitation. PULMONARY VALVE The pulmonary valve is not well visualized. No pulmonary valve regurgitation or stenosis. VESSELS The inferior vena cava was not well visualized. PERICARDIUM No pericardial effusion. Chepe Hook MD (Electronically Signed) Final Date:19 January 2017 14:57
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
--- NOTE | 2017-01-19 15:58 | MG ---
cc: NICHOLAS RAND M.D. Lab No: [id number] Date: 01/19/2017 Age: Sex: M Race: TECHNIQUE 17 channel EEG. DESCRIPTION: The background rhythm reveals a symmetrical alpha rhythm. Frequency is about 8 Hz. Amplitude is 10-20 microvolts. There is slowing in the theta range as well at about 6 Hz which is probably due to drowsiness. No lateralizing features seen and no epileptiform discharges are present. There is some muscle artifact present. Hyperventilation was not done. The patient does fall asleep and there are vertex sharp waves present with sleep spindles. INTERPRETATION: Normal awake and asleep EEG. MD MAGDA Shine/DARRYL /3:53 PM /4:01 PM
--- NOTE | 2017-01-19 19:39 | HHI.DCPOC ---
Discharge Care Plan Diagnosis: (1) Syncope Goals to Promote Your Health * To prevent worsening of your condition and complications * To maintain your health at the optimal level Directions to Meet Your Goals Take your medications as prescribed Follow your dietary instruction Follow activity as directed Keep your appointments as scheduled Take your immunizations and boosters as scheduled If your symptoms worsen call your PCP, if no PCP go to Urgent Care Center or Emergency Room Smoking is Dangerous to Your Health. Avoid second hand smoke Call the 24-hour hour crisis hotline for domestic abuse at Ward Rocha MD R1 Jan 19, 2017 19:39
[2017-01-19] MEDS: SODIUM CHLORIDE 0.9% FLUSH 10 ML FLUSH IV FLUSH SCH (20:48)
[2017-01-20 00:12] VITALS: BP 124/73; PULSE 77; RESP 18; TEMP 98.5; O2SAT 98
[2017-01-20 04:56] LABS: AUTOMATED NEUTROPHIL # 2.5 TH/MM3 (1.8-7.7); BASOPHIL % 0.2 % (0.0-2.0); EOSINOPHIL # 0.2 TH/MM3 (0-0.4); EOSINOPHIL % 3.2 % (0.0-4.0); HEMATOCRIT 42.7 % (39.0-51.0); HEMO FLAGS DIFF FINAL; LYMPH % 52.6 % (9.0-44.0); LYMPHOCYTE # 3.6 TH/MM3 (1.0-4.8); MEAN CELL VOLUME 82.4 FL (80.0-100.0); MEAN CORPUSCULAR HEMOGLOBIN 27.3 PG (27.0-34.0); MEAN CORPUSCULAR HGB CONC 33.2 % (32.0-36.0); MONO % 7.9 % (0.0-8.0); NEUT % 36.1 % (16.0-70.0); PLATELET COUNT 261 TH/MM3 (150-450); RED BLOOD COUNT 5.19 MIL/MM3 (4.50-5.90); RED CELL DISTRIBUTION WIDTH 14.2 % (11.6-17.2); WHITE BLOOD COUNT 6.9 TH/MM3 (4.0-11.0)
[2017-01-20 05:26] LABS: ALT (GPT) 37 U/L (12-78); ANION GAP 10 MEQ/L (5-15); AST (GOT) 18 U/L (15-37); BICARBONATE 27.3 MEQ/L (21.0-32.0); BLOOD UREA NITROGEN 16 MG/DL (7-18); CHLORIDE 102 MEQ/L (98-107); GLOMERULAR FILTRATION RATE 116 ML/MIN (>89); POTASSIUM 3.7 MEQ/L (3.5-5.1); SODIUM (NA) 139 MEQ/L (136-145)
[2017-01-20 05:29] LABS: ALKALINE PHOSPHATASE 45 U/L (45-117); TOTAL BILIRUBIN ADULT 0.2 MG/DL (0.2-1.0)
[2017-01-20 05:41] VITALS: BP 115/63; PULSE 63; RESP 21; TEMP 98.5; O2SAT 98
[2017-01-20 08:06] VITALS: BP 120/72; PULSE 75; RESP 18; TEMP 98.1; O2SAT 100
[2017-01-20 09:20] LABS: HDL CHOLESTEROL 30.6 MG/DL (40.0-60.0)
[2017-01-20] MEDS: SODIUM CHLORIDE 0.9% FLUSH 10 ML FLUSH IV FLUSH SCH (10:32)
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
--- NOTE | 2017-01-20 11:50 | EKG ---
Date Performed: 01/19/2017 Time Performed: 07:45:25 PTAGE: 21 years EKG: Sinus rhythm ST ELEVATION, PROBABLY EARLY REPOLARIZATION Since previous tracing, no significant change noted [facility] ECG PREVIOUS TRACING : 10/12/2016 09.07 DOCTOR: Ralph Ba Interpretating Date/Time 01/20/2017 11:48:41
[2017-01-20 11:59] VITALS: BP 148/67; PULSE 73; RESP 18; TEMP 98.4; O2SAT 97
--- NOTE | 2017-01-23 16:39 | HM ---
Date Performed: 01/19/2017 Time Performed: 20:01:00 HOOKUP DATE: 01/19/17 08:01:00 PM Sun ANALYSIS START TIME: 01/19/2017 8:06:00 PM ANALYSIS END TIME: 01/20/2017 8:09:59 PM PATIENT AGE: 21 PATIENT HEIGHT PATIENT WEIGHT DRUG LIST PATIENT DIAGNOSIS TEST NARRATIVE: The patient's average heart rate was 75 BPM. Heart rates greater than 120 B PM were noted 1% of the time. Heart rates less than 50 BPM were noted < 1% of the time. No pause s exceeding 2.0 seconds were noted. 1479 ventricular ectopics, which represented 1% of the total beat count, were noted. The highest ventricular ectopic frequency occurred from 03:00 PM to 04:00 PM Mon. During this time 108 VE(s) occurred. Ventricular ectopics were observed as 1478 isolated beat (s) only. No couplets or runs were noted. No supraventricular ectopics were noted. Multiple episodes of ST depression (defined as -1.0 mm or more) were noted in channel 1. The maximum depress ion of -2.3 mm occurred at 03:20:32 AM Mon. Multiple episodes of ST depression (defined as -1.0 mm o r more) were noted in channel 2. The maximum depression of -1.8 mm occurred at 03:10:08 AM Mon. No episodes of ST depression (defined as -1.0 mm or more) were noted in channel 3. TEST INTERPRETATION: 24 Hour Holter Monitor-Dr. Nicholas Knapp Patient was monitored for 24 ho urs and 12 minutes. Patient was in normal Sinus rhythm . Patient had an average heart rate of 75 beats per minute. There was and episode of sinus Bradycar karly at 45 beats per minute at 05:22:02 p.m. There were 1478 premature ventricular contractions, and z ero premature atrial contractions. There was a period of sinus tachycardia at a rate of 141 beats per minute at 07:03 p.m. Signed by : Nicholas Knapp
== END 2017-01-20 14:23 | disposition home or self-care (01) ==
LOC: NEPC 07:11 → NEDA 10:32 → NEPGCP 13:02
PROVIDERS: ADMIT Family Medicine; ATTEND Family Medicine
DX: R55 Syncope and collapse (principal); R51 Headache; F43.0 Acute stress reaction; R42 Dizziness and giddiness; F41.9 Anxiety disorder, unspecified; R11.2 Nausea with vomiting, unspecified; R19.7 Diarrhea, unspecified; R10.9 Unspecified abdominal pain; R63.1 Polydipsia; R59.0 Localized enlarged lymph nodes; I51.7 Cardiomegaly; J45.909 Unspecified asthma, uncomplicated
CPT/HCPCS: 70450; 71010; 80053; 80061; 80307; 81001; 82550; 82552; 83735; 84484; 85025; 93005; 93225; 93226; 93306; 93880; 95819; 96360; 99285; G0378; J7030

== ENCOUNTER 2017-02-16 00:22 | Emergency (ER) | payer SELFPAY ==
[2017-02-16 00:24] VITALS: BP 129/84; PULSE 72; RESP 16; TEMP 97.2; O2SAT 99
[2017-02-16] MEDS ORDERED: LORazepam 2 MG/ML VIAL ONE (00:29)
[2017-02-16] MEDS ORDERED: ZIPRASIDONE MESYLATE 20 MG VIAL IM ONE (00:29)
[2017-02-16 00:35] VITALS: BP 140/86; PULSE 104; RESP 22; TEMP 97.9; O2SAT 98
[2017-02-16] MEDS ORDERED: ONDANSETRON HCL 4 MG/2 ML VIAL IV PUSH SCH (02:00)
[2017-02-16] MEDS ORDERED: SODIUM CHLOR 0.9% 1000 ML INJ 1,000 ML IV SCH (02:00)
[2017-02-16] MEDS ORDERED: ONDANSETRON HCL 4 MG/2 ML VIAL ONE (02:47)
[2017-02-16 03:29] LABS: BASOPHIL % 0.5 % (0.0-2.0); EOSINOPHIL # 0.2 TH/MM3 (0-0.4); EOSINOPHIL % 2.8 % (0.0-4.0); HEMATOCRIT 39.9 % (39.0-51.0); HEMO FLAGS DIFF FINAL; LYMPH % 47.3 % (9.0-44.0); LYMPHOCYTE # 3.7 TH/MM3 (1.0-4.8); MEAN CELL VOLUME 81.3 FL (80.0-100.0); MEAN CORPUSCULAR HEMOGLOBIN 26.7 PG (27.0-34.0); MEAN CORPUSCULAR HGB CONC 32.8 % (32.0-36.0); MONO % 10.4 % (0.0-8.0); PLATELET COUNT 258 TH/MM3 (150-450); RED BLOOD COUNT 4.91 MIL/MM3 (4.50-5.90); RED CELL DISTRIBUTION WIDTH 14.4 % (11.6-17.2); WHITE BLOOD COUNT 7.8 TH/MM3 (4.0-11.0)
[2017-02-16 03:57] LABS: ALKALINE PHOSPHATASE 46 U/L (45-117); ALT (GPT) 34 U/L (12-78); ANION GAP 5 MEQ/L (5-15); AST (GOT) 22 U/L (15-37); BICARBONATE 29.3 MEQ/L (21.0-32.0); BLOOD UREA NITROGEN 22 MG/DL (7-18); CHLORIDE 107 MEQ/L (98-107); GLOMERULAR FILTRATION RATE 113 ML/MIN (>89); POTASSIUM 3.7 MEQ/L (3.5-5.1); SODIUM (NA) 141 MEQ/L (136-145); TOTAL BILIRUBIN ADULT 0.2 MG/DL (0.2-1.0)
[2017-02-16] MEDS ORDERED: ULTR50TA5 PO (04:24)
[2017-02-16] MEDS ORDERED: ZOFR4TAB3 SL (04:24)
--- NOTE | 2017-02-16 04:25 | PD ---
HPI Chief Complaint: Abdominal Pain Time Seen by Provider: 03:34 Travel History International Travel<30 days: No Contact w/Intl Traveler<30days: No Traveled to known affect area: No History of Present Illness HPI C/O CRAMPY ABD PAIN, 01/18, ASSOC WITH N/V/D/ OVER PAST 2 DAYS WHICH IS NOT IMPROVING. PFSH Past Medical History Asthma: Yes (As a child, not anymore) Blood Disorders: No Anxiety: Yes Depression: No Heart Rhythm Problems: Yes ("Skipped a Beat") Cancer: No Cardiovascular Problems: Yes High Cholesterol: Yes Chest Pain: No Congestive Heart Failure: No COPD: No Diabetes: No Diminished Hearing: No Endocrine: No Genitourinary: No Immune Disorder: No Musculoskeletal: No Neurologic: No Psychiatric: Yes Reproductive: No Respiratory: Yes (CHILDHOOD ASTHMA ) Immunizations Current: Yes Sleep Apnea: No Thyroid Disease: No Social History Alcohol Use: Yes (OCCASIONALLY) Tobacco Use: No Substance Use: No Allergies-Medications (Allergen,Severity, Reaction): Coded Allergies: Mushroom (Verified Allergy, Severe, Nausea/Vomiting, 02/16/17) Reported Meds & Prescriptions Reported Meds & Active Scripts Active Zofran Odt (Ondansetron Odt) 4 Mg Tab 4 Mg SL Q6HR PRN Ultram (Tramadol HCl) 50 Mg Tab 50 Mg PO Q4H PRN Review of Systems Except as stated in HPI: all other systems reviewed are Neg Gastrointestinal: Positive: Nausea, Vomiting, Diarrhea, Abdominal Pain Physical Exam Narrative GENERAL: SKIN: Warm and dry. HEAD: Atraumatic. Normocephalic. EYES: Pupils equal and round. No scleral icterus. No injection or drainage. ENT: No nasal bleeding or discharge. Mucous membranes pink and moist. NECK: Trachea midline. No JVD. CARDIOVASCULAR: Regular rate and rhythm. RESPIRATORY: No accessory muscle use. Clear to auscultation. Breath sounds equal bilaterally. GASTROINTESTINAL: Abdomen soft, non-tender, nondistended. HYPERACTIVE BOWEL SOUND MUSCULOSKELETAL: Extremities without clubbing, cyanosis, or edema. No obvious deformities. NEUROLOGICAL: Awake and alert. No obvious cranial nerve deficits. Motor grossly within normal limits. Five out of 5 muscle strength in the arms and legs. Normal speech. PSYCHIATRIC: Appropriate mood and affect; insight and judgment normal. Data Data Last Documented VS Vital Signs Date Time Temp Pulse Resp B/P Pulse Ox O2 Delivery O2 Flow Rate FiO2 02/16/17 00:24 97.2 72 16 129/84 99 Room Air Orders Ziprasidone Inj (Geodon Inj) (02/16/17 00:29) Lorazepam Inj (Ativan Inj) (02/16/17 00:29) Ondansetron Inj (Zofran Inj) (02/16/17 02:47) Sodium Chlor 0.9% 1000 Ml Inj (Ns 1000 M (02/16/17 02:00) Ondansetron Inj (Zofran Inj) (02/16/17 02:00) Comprehensive Metabolic Panel (02/16/17 02:40) Complete Blood Count With Diff (02/16/17 02:40) Labs Laboratory Tests Test 02/16/17 02:40 White Blood Count 7.8 TH/MM3 Red Blood Count 4.91 MIL/MM3 Hemoglobin 13.1 GM/DL Hematocrit 39.9 % Mean Corpuscular Volume 81.3 FL Mean Corpuscular Hemoglobin 26.7 PG Mean Corpuscular Hemoglobin 32.8 % Concent Red Cell Distribution Width 14.4 % Platelet Count 258 TH/MM3 Mean Platelet Volume 7.6 FL Neutrophils (%) (Auto) 39.0 % Lymphocytes (%) (Auto) 47.3 % Monocytes (%) (Auto) 10.4 % Eosinophils (%) (Auto) 2.8 % Basophils (%) (Auto) 0.5 % Neutrophils # (Auto) 3.0 TH/MM3 Lymphocytes # (Auto) 3.7 TH/MM3 Monocytes # (Auto) 0.8 TH/MM3 Eosinophils # (Auto) 0.2 TH/MM3 Basophils # (Auto) 0.0 TH/MM3 CBC Comment DIFF FINAL Differential Comment Sodium Level 141 MEQ/L Potassium Level 3.7 MEQ/L Chloride Level 107 MEQ/L Carbon Dioxide Level 29.3 MEQ/L Anion Gap 5 MEQ/L Blood Urea Nitrogen 22 MG/DL Creatinine 1.00 MG/DL Estimat Glomerular Filtration 113 ML/MIN Rate Random Glucose 98 MG/DL Calcium Level 8.8 MG/DL Total Bilirubin 0.2 MG/DL Aspartate Amino Transf 22 U/L (AST/SGOT) Alanine Aminotransferase 34 U/L (ALT/SGPT) Alkaline Phosphatase 46 U/L Total Protein 7.0 GM/DL Albumin 3.6 GM/DL MDM Medical Decision Making Medical Screen Exam Complete: Yes Emergency Medical Condition: Yes Medical Record Reviewed: Yes Differential Diagnosis VIRAL VS BACTERIAL ENTERITIS, VS PANCREATITIS VS ELECTROLYTE ABNL Narrative Course PATIENT WAS EVALUATED AND NOT FOUND TO HAVE ELECTROLYTE ABNORMALITIES, NO PANCREATITIS, AND NO E/O BACTERIAL ENTERITIS. PT TOLERATED PO, AND DID WELL WITH TREATMENT Diagnosis Primary Impression: Gastroenteritis Patient Instructions: Gastroenteritis (ED), General Instructions Scripts Ondansetron Odt (Zofran Odt)4 Mg Tab4 Mg SL Q6HR PRN (Nausea/Vomiting) #12 TAB Prov:Kevin Raphael MD 02/16/17 Tramadol (Ultram)50 Mg Tab50 Mg PO Q4H PRN (PAIN) #28 TAB Prov:Kevin Raphael MD 02/16/17 Disposition: 01 DISCHARGE HOME Condition: Stable Kevin Raphael MD Feb 16, 2017 04:25
== END 2017-02-16 05:03 | disposition home or self-care (01) ==
LOC: NEPC 00:22
DX: K52.9 Noninfective gastroenteritis and colitis, unspecified (principal); J45.909 Unspecified asthma, uncomplicated; F41.9 Anxiety disorder, unspecified; E78.00 Pure hypercholesterolemia, unspecified; Z79.899 Other long term (current) drug therapy
CPT/HCPCS: 80053; 85025; 96374; 99284; J2060; J2405; J3486

== ENCOUNTER 2017-03-09 07:58 | Emergency (ER) | payer SELFPAY ==
[~2017-03-09] VITALS: Ht 182.9 cm; Wt 97.0 kg
[~2017-03-09 07:58] MED LIST changes: -BACL10TA PO; -IBUP800T23 PO; +ULTR50TA5 PO; +ZOFR4TAB3 SL
[2017-03-09 08:03] VITALS: BP 137/99; PULSE 78; RESP 20; TEMP 97.6; O2SAT 99
[2017-03-09 08:25] VITALS: BP 126/83; PULSE 75; RESP 24; O2SAT 98
[2017-03-09] MEDS ORDERED: LORazepam 1 MG TAB PO ONE (08:30)
[2017-03-09] MEDS ORDERED: KETOROLAC TROMETHAMINE 30 MG/ML (IVP) VIAL IVP ONE (08:30)
[2017-03-09 10:00] VITALS: BP 104/54; PULSE 70; RESP 16; O2SAT 98
--- NOTE | 2017-03-09 10:42 | PD ---
HPI Chief Complaint: Chest Pain Time Seen by Provider: 08:18 Travel History International Travel<30 days: No Contact w/Intl Traveler<30days: No Traveled to known affect area: No History of Present Illness HPI This patient complains of chest pain. Location is center sternum. He is visibly and highly anxious. No shortness of breath. No presyncopal symptoms. Duration one day. No alleviating factors. Severity is moderate PFSH Past Medical History Asthma: Yes (As a child, not anymore) Blood Disorders: No Anxiety: Yes Depression: No Heart Rhythm Problems: Yes ("Skipped a Beat") Cancer: No Cardiovascular Problems: Yes High Cholesterol: Yes Chest Pain: No Congestive Heart Failure: No COPD: No Diabetes: No Diminished Hearing: No Endocrine: No Gastrointestinal Disorders: Yes Genitourinary: No Immune Disorder: No Musculoskeletal: No Neurologic: No Psychiatric: Yes Reproductive: No Respiratory: Yes (CHILDHOOD ASTHMA ) Immunizations Current: Yes Sleep Apnea: No Thyroid Disease: No Past Surgical History Other Surgery: No Social History Alcohol Use: Yes (OCCASIONALLY) Tobacco Use: No Substance Use: No Allergies-Medications (Allergen,Severity, Reaction): Coded Allergies: Mushroom (Verified Allergy, Severe, Nausea/Vomiting, 03/09/17) Reported Meds & Prescriptions Reported Meds & Active Scripts Active No Active Prescriptions or Reported Medications Review of Systems General / Constitutional: No: Fever Eyes: No: Visual changes HENT: No: Headaches Cardiovascular: Positive: Chest Pain or Discomfort Respiratory: No: Shortness of Breath Gastrointestinal: No: Abdominal Pain Genitourinary: No: Dysuria Musculoskeletal: No: Pain Skin: No Rash Neurologic: No: Weakness Psychiatric: Positive: Anxiety, No: Depression Endocrine: No: Polydipsia Hematologic/Lymphatic: No: Easy Bruising Physical Exam Narrative GENERAL: Well-nourished, well-developed patient in no apparent distress. SKIN: Focused skin assessment reveals no rash and nodules. Skin is Warm and dry. HEAD: Atraumatic. Normocephalic. EYES: Pupils equal and round. No scleral icterus. No injection or drainage. ENT: No nasal bleeding or discharge. Mucous membranes pink and moist. NECK: Trachea midline. No JVD. CARDIOVASCULAR: Regular rate and rhythm. No murmur appreciated. RESPIRATORY: No accessory muscle use. Clear to auscultation. Breath sounds equal bilaterally. GASTROINTESTINAL: Abdomen soft, non-tender, nondistended. Hepatic and splenic margins not palpable. MUSCULOSKELETAL: No obvious deformities. No clubbing. No cyanosis. No edema. Reproducible in prominent anterior chest wall tenderness NEUROLOGICAL: Awake and alert. No obvious cranial nerve deficits. Motor grossly within normal limits. Normal speech. PSYCHIATRIC: Anxious mood and affect; insight and judgment normal. Data Data Last Documented VS Vital Signs Date Time Temp Pulse Resp B/P Pulse Ox O2 Delivery O2 Flow Rate FiO2 03/09/17 10:00 70 16 104/54 98 Room Air 03/09/17 08:03 97.6 Orders Ketorolac Inj (Toradol Inj) (03/09/17 08:30) Lorazepam (Ativan) (03/09/17 08:30) Electrocardiogram (03/09/17 ) [facility] Medical Decision Making Medical Screen Exam Complete: Yes Emergency Medical Condition: Yes Medical Record Reviewed: Yes Differential Diagnosis Differential diagnosis includes AR, angina, pericarditis, pleurisy, GERD, anxiety. Narrative Course I have reviewed the patient's electronic medical record. Has been here multiple times for chest pain before Patient's EKG is the same as prior. There is no suspicion of ACS A few leads have small ST elevation namely V2 3 and 4 but his prior EKG showed the same thing He has chest wall pain I gave him 30 mg IV Toradol and 2 mg by mouth Ativan Diagnosis Primary Impression: Musculoskeletal chest pain Additional Impression: Anxiety Additional Instructions: The patient was advised to follow up with their physician and return if they worsen. Med/Other Pt SpecificInfo: Other Scripts No Active Prescriptions or Reported Meds Disposition: 01 DISCHARGE HOME Condition: Stable Lavelle Balbuena MD Mar 09, 2017 10:41
[2017-03-09 11:00] VITALS: BP 111/54; PULSE 72; RESP 17; O2SAT 99
[2017-03-09 12:00] VITALS: BP 109/66; PULSE 68; RESP 24; O2SAT 98
--- NOTE | 2017-03-09 14:40 | EKG ---
Date Performed: 03/09/2017 Time Performed: 08:15:11 PTAGE: 22 years EKG: Sinus rhythm ST CHANGES COMPATIBLE WITH EARLY REPOLARIZATION Compared to PREVIOUS TRACING , no significant change ABNORMAL ECG INTERPRETATION BASED ON A DEFAULT A GE OF 40 YEARS PREVIOUS TRACIN01/19/2017 07.45 DOCTOR: Damion Mcdonald Interpretating Date/Time 03/09/2017 14:39:33
== END 2017-03-09 12:47 | disposition home or self-care (01) ==
LOC: NEPC 07:58
DX: R07.89 Other chest pain (principal); F41.9 Anxiety disorder, unspecified
CPT/HCPCS: 93005; 96374; 99284; J1885

== ENCOUNTER 2017-06-04 10:03 | Emergency (ER) | payer SELFPAY ==
[~2017-06-04] VITALS: Ht 182.9 cm; Wt 80.0 kg
[2017-06-04 10:04] VITALS: BP 150/104; PULSE 69; RESP 16; TEMP 97.9; O2SAT 99
--- NOTE | 2017-06-04 10:43 | PD ---
HPI Chief Complaint: Injury Time Seen by Provider: 10:27 Travel History International Travel<30 days: No Contact w/Intl Traveler<30days: No Traveled to known affect area: No History of Present Illness HPI 22-year-old male presents the emergency department with injury to the right ankle 2 weeks ago. She states she is evaluated at [facility] and placed in an ankle splint and crutches. He states he tried to work yesterday, but the pain was worse and they sent him home and wanted a note before he return to work. Patient complains of pain both medially and laterally in the right ankle. He has no numbness, tingling, or foot pain. He is allergic to mushrooms. [facility] Past Medical History Asthma: Yes (As a child, not anymore) Blood Disorders: No Anxiety: Yes Depression: No Heart Rhythm Problems: Yes ("Skipped a Beat") Cancer: No Cardiovascular Problems: Yes High Cholesterol: Yes Chest Pain: No Congestive Heart Failure: No COPD: No Diabetes: No Diminished Hearing: No Endocrine: No Gastrointestinal Disorders: Yes Genitourinary: No Immune Disorder: No Musculoskeletal: No Neurologic: No Psychiatric: Yes Reproductive: No Respiratory: Yes (CHILDHOOD ASTHMA ) Immunizations Current: Yes Sleep Apnea: No Thyroid Disease: No Past Surgical History Other Surgery: No Social History Alcohol Use: Yes (OCCASIONALLY) Tobacco Use: No Substance Use: Yes (OCC MARAJUIANA ) Allergies-Medications (Allergen,Severity, Reaction): Coded Allergies: mushroom (Unverified Allergy, Severe, Nausea/Vomiting, 05/22/17) Reported Meds & Prescriptions Reported Meds & Active Scripts Active No Active Prescriptions or Reported Medications Review of Systems Except as stated in HPI: all other systems reviewed are Neg General / Constitutional: No: Fever Eyes: No: Visual changes HENT: No: Headaches Cardiovascular: No: Chest Pain or Discomfort Respiratory: No: Shortness of Breath Gastrointestinal: No: Abdominal Pain Genitourinary: No: Dysuria Musculoskeletal: Positive: Arthralgias, Pain Skin: No Rash Neurologic: No: Weakness Psychiatric: No: Depression Endocrine: No: Polydipsia Hematologic/Lymphatic: No: Easy Bruising Physical Exam Narrative GENERAL: Patient is in no acute distress. SKIN: Warm and dry. Normal color. Normal turgor. No ecchymosis. No erythema. HEAD: Atraumatic. Normocephalic. EYES: Pupils equal and round. No scleral icterus. No injection or drainage. ENT: No nasal bleeding or discharge. Mucous membranes pink and moist. NECK: Trachea midline. No JVD. CARDIOVASCULAR: Regular rate and rhythm. RESPIRATORY: No accessory muscle use. Clear to auscultation. Breath sounds equal bilaterally. GASTROINTESTINAL: Abdomen soft, non-tender, nondistended. Hepatic and splenic margins not palpable. MUSCULOSKELETAL: Extremities without clubbing, cyanosis, or edema. No obvious deformities. Right ankle appears normal without effusion. Range of motion seems somewhat tight but otherwise normal. Normal strength without pain. NEUROLOGICAL: Awake and alert. No obvious cranial nerve deficits. Motor grossly within normal limits. Five out of 5 muscle strength in the arms and legs. Normal speech. PSYCHIATRIC: Appropriate mood and affect; insight and judgment normal. Data Data Last Documented VS Vital Signs Date Time Temp Pulse Resp B/P (MAP) Pulse Ox O2 Delivery O2 Flow Rate FiO2 06/04/17 10:04 97.9 69 16 150/104 (119) 99 Room Air Orders Orders Ice/Cold Pack (06/04/17 10:19) Ankle, Complete ([id number]) (06/04/17 10:25) [facility] Medical Decision Making Medical Screen Exam Complete: Yes Emergency Medical Condition: Yes Differential Diagnosis Right ankle pain. Right ankle sprain. Possible fracture. Narrative Course Repeat x-ray of the right ankle is ordered. X-ray shows no acute fracture dislocation per radiologist. Patient is felt to have ongoing right ankle strain symptoms Patient is given ibuprofen 600 mg 3 times a day #30. Patient given Tylenol 500 mg 2 tabs 3 times a day when necessary pain #60. Patient is to do ankle range of motion exercises as discussed, use ice the area of the day, and follow up if symptoms worsen. Work note is given to return on Friday. Diagnosis Primary Impression: Sprain of ankle, right Qualified Codes: S93.401D - Sprain of unspecified ligament of right ankle, subsequent encounter Referrals: Primary Care Physician Patient Instructions: Ankle Sprain (ED), Ankle Sprain in Children (ED), General Instructions Departure Forms: Work Release Enter return to work date: Jun 10, 2017 Additional Instructions: X-ray shows no acute fracture dislocation per radiologist. Patient is felt to have ongoing right ankle strain symptoms Patient is given ibuprofen 600 mg 3 times a day #30. Patient given Tylenol 500 mg 2 tabs 3 times a day when necessary pain #60. Patient is to do ankle range of motion exercises as discussed, use ice the area of the day, and follow up if symptoms worsen. Work note is given to return on Friday. Med/Other Pt SpecificInfo: Prescription(s) given Scripts No Active Prescriptions or Reported Meds Disposition: 01 DISCHARGE HOME Condition: Stable Juan Hoffman Jun 04, 2017 10:43
[2017-06-04] MEDS ORDERED: IBUP-232 PO (10:48)
[2017-06-04] MEDS ORDERED: MAPA500T13 PO (10:48)
--- NOTE | 2017-06-04 11:07 | RADRPT ---
EXAM DATE/TIME: 06/04/2017 10:36 [facility] COMPARISON: No previous studies available for comparison. INDICATIONS : Twisted ankle last week. MEDICAL HISTORY : None. SURGICAL HISTORY : None. ENCOUNTER: Initial ACUITY: 1 week PAIN SCORE: 5/10 LOCATION: Right heel, and lateral malleolus FINDINGS: Three view exam was performed of the right ankle. The bony structures are in normal alignment. No e vidence of fracture, dislocation, or soft tissue swelling. The ankle mortise is intact. No radiopaq ue foreign bodies are seen. Bony mineralization is normal. CONCLUSION: No fracture or subluxation of the right ankle. Jose Lu MD on June 04, 2017 at 11:04 Board Certified Radiologist. This report was verified electronically.
== END 2017-06-04 11:18 | disposition home or self-care (01) ==
LOC: NEPK 10:03
DX: S93.401A Sprain of unspecified ligament of right ankle, initial encounter (principal); J45.909 Unspecified asthma, uncomplicated; F41.9 Anxiety disorder, unspecified; E78.00 Pure hypercholesterolemia, unspecified; X58.XXXA Exposure to other specified factors, initial encounter
CPT/HCPCS: 73610; 99283

== ENCOUNTER 2017-10-16 17:13 | Emergency (ER) | payer SELFPAY ==
[~2017-10-16] VITALS: Ht 182.9 cm; Wt 120.0 kg
[~2017-10-16 17:13] MED LIST changes: +IBUP-232 PO; +MAPA500T13 PO; -ULTR50TA5 PO; -ZOFR4TAB3 SL
[2017-10-16 17:25] VITALS: BP 151/76; PULSE 96; RESP 16; TEMP 98.4; O2SAT 96
--- NOTE | 2017-10-16 17:57 | RADRPT ---
EXAM DATE/TIME: 10/16/2017 17:43 [facility] COMPARISON: CHEST PA & LAT, February 28, 2016, 10:08. INDICATIONS : Chest pain. MEDICAL HISTORY : asthma. SURGICAL HISTORY : None. ENCOUNTER: Initial ACUITY: 1 day PAIN SCORE: 8/10 LOCATION: middle chest. FINDINGS: PA and lateral views of the chest demonstrate the lungs to be symmetrically aerated without evidence of mass, infiltrate or effusion. The cardiomediastinal contours are unremarkable. Osseous structure s are intact. CONCLUSION: 1. No acute cardiopulmonary disease. Yong Coffey MD on October 16, 2017 at 17:55 Board Certified Radiologist. This report was verified electronically.
[2017-10-16 19:20] LABS: AUTOMATED NEUTROPHIL # 3.2 TH/MM3 (1.8-7.7); BASOPHIL % 0.5 % (0.0-2.0); EOSINOPHIL # 0.2 TH/MM3 (0-0.4); EOSINOPHIL % 2.4 % (0.0-4.0); HEMATOCRIT 41.9 % (39.0-51.0); HEMOGLOBIN 14.1 GM/DL (13.0-17.0); LYMPHOCYTE # 3.7 TH/MM3 (1.0-4.8); MEAN CELL VOLUME 83.1 FL (80.0-100.0); MEAN CORPUSCULAR HEMOGLOBIN 27.9 PG (27.0-34.0); MEAN CORPUSCULAR HGB CONC 33.6 % (32.0-36.0); MEAN PLATELET VOLUME 7.2 FL (7.0-11.0); MONO % 8.3 % (0.0-8.0); MONOCYTE # 0.6 TH/MM3 (0-0.9); NEUT % 40.8 % (16.0-70.0); PLATELET COUNT 279 TH/MM3 (150-450); RED BLOOD COUNT 5.04 MIL/MM3 (4.50-5.90); RED CELL DISTRIBUTION WIDTH 14.5 % (11.6-17.2); WHITE BLOOD COUNT 7.7 TH/MM3 (4.0-11.0)
[2017-10-16 19:31] LABS: BICARBONATE 26.3 MEQ/L (21.0-32.0); BLOOD UREA NITROGEN 13 MG/DL (7-18); CALCIUM 8.6 MG/DL (8.5-10.1); CHLORIDE 101 MEQ/L (98-107); CREATININE 0.99 MG/DL (0.60-1.30); GLOMERULAR FILTRATION RATE 115 ML/MIN (>89); GLUCOSE,RANDOM 86 MG/DL (74-106); SODIUM (NA) 137 MEQ/L (136-145)
[2017-10-16 19:36] LABS: INTERNATIONAL NORMALIZED RATIO 1.1 RATIO; PROTHROMBIN TIME - PATIENT 10.7 SEC (9.8-11.6); TROPONIN I LESS THAN 0.02 NG/ML (0.02-0.05)
[2017-10-16 19:58] VITALS: BP 140/82; PULSE 65; RESP 18; O2SAT 99
[2017-10-16] MEDS ORDERED: PROT40TA PO (20:45)
[2017-10-16] MEDS ORDERED: IBUPROFEN 600 MG TAB PO ONE (20:45)
[2017-10-16] MEDS ORDERED: PANTOPRAZOLE SOD 40 MG DELAYED RELEASE TAB PO ONE (20:45)
--- NOTE | 2017-10-16 20:45 | PD ---
HPI Chief Complaint: Chest Pain Time Seen by Provider: 20:07 Travel History International Travel<30 days: No Contact w/Intl Traveler<30days: No Traveled to known affect area: No History of Present Illness HPI 22-year-old male here for evaluation of chest tightness and blood in his mouth. The patient reports having this before when he was feeling stressed. Patient reports feeling stressed from work as well as College. He complains of a substernal chest tightness and he noticed some specks of blood in his mouth. He is unsure if he coughed the blood up or vomited the blood. He denies fevers , chills, cough, or recent illness. No known history of cardiac disease. No history of DVT or PE. He denies smoking or using illicit drugs. PFSH Past Medical History Asthma: Yes (As a child, not anymore) Blood Disorders: No Anxiety: Yes Depression: No Heart Rhythm Problems: Yes ("Skipped a Beat") Cancer: No Cardiovascular Problems: Yes High Cholesterol: Yes Chest Pain: No Congestive Heart Failure: No COPD: No Diabetes: No Diminished Hearing: No Endocrine: No Gastrointestinal Disorders: Yes Genitourinary: No Immune Disorder: No Musculoskeletal: No Neurologic: No Psychiatric: Yes Reproductive: No Respiratory: Yes (CHILDHOOD ASTHMA ) Immunizations Current: Yes Sleep Apnea: No Thyroid Disease: No Influenza Vaccination: Yes Past Surgical History Surgical History: No Previous Surgery Other Surgery: No Social History Alcohol Use: Yes (OCCASIONALLY) Tobacco Use: No Substance Use: Yes (OCC MARAJUIANA ) Allergies-Medications (Allergen,Severity, Reaction): Coded Allergies: mushroom (Unverified Allergy, Severe, Nausea/Vomiting, 06/04/17) Reported Meds & Prescriptions Reported Meds & Active Scripts Active Review of Systems Except as stated in HPI: all other systems reviewed are Neg Physical Exam Narrative GENERAL: Well-developed, well-nourished, comfortable, no apparent distress. SKIN: Focused skin assessment warm/dry. No pallor. HEAD: Atraumatic. Normocephalic. EYES: Pupils equal and round. No scleral icterus. No injection or drainage. ENT: No nasal bleeding or discharge. Mucous membranes pink and moist. Normal pharynx. No intraoral lesions. No blood in mouth. NECK: Trachea midline. No JVD. CARDIOVASCULAR: Regular rate and rhythm. RESPIRATORY: No accessory muscle use. Clear to auscultation. Breath sounds equal bilaterally. GASTROINTESTINAL: Abdomen soft, non-tender, nondistended. Hepatic and splenic margins not palpable. MUSCULOSKELETAL: No obvious deformities. No clubbing. No cyanosis. No edema. NEUROLOGICAL: Awake and alert. No obvious cranial nerve deficits. Motor grossly within normal limits. Normal speech. PSYCHIATRIC: Appropriate mood and affect; insight and judgment normal. Data Data Last Documented VS Vital Signs Date Time Temp Pulse Resp B/P (MAP) Pulse Ox O2 Delivery O2 Flow Rate FiO2 10/16/17 19:58 99 Room Air 10/16/17 19:58 65 18 140/82 (101) 10/16/17 17:25 98.4 Orders Orders Electrocardiogram (10/16/17 17:32) Complete Blood Count With Diff (10/16/17 17:32) Basic Metabolic Panel (Bmp) (10/16/17 17:32) Ckmb (Isoenzyme) Profile (10/16/17 17:32) Troponin I (10/16/17 17:32) Iv Access Insert/Monitor (10/16/17 17:32) Ecg Monitoring (10/16/17 17:32) Oxygen Administration (10/16/17 17:32) Oximetry (10/16/17 17:32) Chest, Pa & Lat (10/16/17 ) Act Partial Throm Time (Ptt) (10/16/17 17:32) Prothrombin Time / Inr (Pt) (10/16/17 17:32) CKMB (10/16/17 18:45) CKMB% (10/16/17 18:45) Pantoprazole (Protonix) (10/16/17 20:45) Ibuprofen (Motrin) (10/16/17 20:45) Labs Laboratory Tests Test 10/16/17 18:45 White Blood Count 7.7 TH/MM3 Red Blood Count 5.04 MIL/MM3 Hemoglobin 14.1 GM/DL Hematocrit 41.9 % Mean Corpuscular Volume 83.1 FL Mean Corpuscular Hemoglobin 27.9 PG Mean Corpuscular Hemoglobin Concent 33.6 % Red Cell Distribution Width 14.5 % Platelet Count 279 TH/MM3 Mean Platelet Volume 7.2 FL Neutrophils (%) (Auto) 40.8 % Lymphocytes (%) (Auto) 48.0 % Monocytes (%) (Auto) 8.3 % Eosinophils (%) (Auto) 2.4 % Basophils (%) (Auto) 0.5 % Neutrophils # (Auto) 3.2 TH/MM3 Lymphocytes # (Auto) 3.7 TH/MM3 Monocytes # (Auto) 0.6 TH/MM3 Eosinophils # (Auto) 0.2 TH/MM3 Basophils # (Auto) 0.0 TH/MM3 CBC Comment DIFF FINAL Differential Comment Prothrombin Time 10.7 SEC Prothromb Time International Ratio 1.1 RATIO Activated Partial Thromboplast Time 26.4 SEC Blood Urea Nitrogen 13 MG/DL Creatinine 0.99 MG/DL Random Glucose 86 MG/DL Calcium Level 8.6 MG/DL Sodium Level 137 MEQ/L Potassium Level 3.6 MEQ/L Chloride Level 101 MEQ/L Carbon Dioxide Level 26.3 MEQ/L Anion Gap 10 MEQ/L Estimat Glomerular Filtration Rate 115 ML/MIN Total Creatine Kinase 396 U/L Creatine Kinase MB 1.9 NG/ML Creatine Kinase MB % 0.5 % Troponin I LESS THAN 0.02 NG/ML MDM Medical Decision Making Medical Screen Exam Complete: Yes Emergency Medical Condition: Yes Interpretation(s) EKG: Sinus, rate 65, normal axis, normal intervals, no acute ischemic abnormality. Differential Diagnosis ACS, pneumothorax, peritonitis, PE, pneumonia, musculoskeletal pain, GERD, Danielle-Choe tears, Boerhaave syndrome Narrative Course Vital signs reviewed. CBC is unremarkable. BMP is unremarkable. Cardiac enzymes are negative. Chest x-ray shows no acute disease. The patient was made aware of all findings. He is resting comfortably. He does have some anterior chest wall tenderness without crepitus, without step-off , without paradoxical chest wall movements. He is PERC negative. He is requesting a work note to take off for the next 4 days. I did not believe his chest pain is cardiopulmonary in nature. Plan is to start him on Protonix. He is stable for discharge home with outpatient follow-up. He was advised on when to return to the emergency department. He verbalizes understanding and agreement with plan. Diagnosis Primary Impression: Atypical chest pain Referrals: [facility] 3 days Primary Care Physician 3 days Additional Instructions: Follow-up with a primary care physician this week. Return to the emergency department for worsening symptoms or any other concerns. Scripts Pantoprazole (Protonix) 40 Mg Tab 40 MG PO DAILY for Reflux, #30 TAB 0 Refills Prov: Raul Reno MD 10/16/17 Disposition: 01 DISCHARGE HOME Condition: Stable Raul Reno MD Oct 16, 2017 20:45
--- NOTE | 2017-10-16 23:43 | EKG ---
Date Performed: 10/16/2017 Time Performed: 18:29:49 PTAGE: 22 years EKG: Sinus rhythm WITH SINUS ARRHYTHMIA NORMAL ECG PREVIOUS TRACING : 03/09/2017 08.15 Since the prior tracing, there has been no significant lu DOCTOR: David Cifuentes Interpretating Date/Time 10/16/2017 23:42:10
== END 2017-10-16 21:20 | disposition home or self-care (01) ==
LOC: NEPD 17:13
DX: R07.89 Other chest pain (principal); J45.909 Unspecified asthma, uncomplicated; F41.9 Anxiety disorder, unspecified; E78.00 Pure hypercholesterolemia, unspecified; I49.9 Cardiac arrhythmia, unspecified
CPT/HCPCS: 71046; 80048; 82550; 82552; 84484; 85025; 85610; 85730; 93005; 99285

== ENCOUNTER 2017-10-22 22:24 | Emergency (ER) | payer SELFPAY ==
[~2017-10-22] VITALS: Ht 182.9 cm; Wt 110.0 kg
[~2017-10-22 22:24] MED LIST changes: -IBUP-232 PO; -MAPA500T13 PO; +PROT40TA PO
[2017-10-22 23:11] VITALS: BP 137/88; PULSE 87; RESP 18; TEMP 98.3; O2SAT 98
--- NOTE | 2017-10-22 23:38 | PD ---
HPI Chief Complaint: Cold / Flu Symptoms Time Seen by Provider: 23:27 Travel History International Travel<30 days: No Contact w/Intl Traveler<30days: No Traveled to known affect area: No History of Present Illness HPI 22-year-old male here for clearance to go back to work. I evaluated the patient on 10/16/17 when he was complaining of chest pain and hemoptysis. His workup was unremarkable and he was discharged home from the emergency department. At that time he requested to take 4 days off of work. He is now requesting a note so he can go back to work. He has some nasal congestion and some sore throat, but otherwise feels well. No chest pain or dyspnea. No fevers. PFSH Past Medical History Asthma: Yes (As a child, not anymore) Blood Disorders: No Anxiety: Yes Depression: No Heart Rhythm Problems: Yes ("Skipped a Beat") Cancer: No Cardiovascular Problems: Yes High Cholesterol: Yes Chest Pain: No Congestive Heart Failure: No COPD: No Diabetes: No Diminished Hearing: No Endocrine: No Gastrointestinal Disorders: Yes Genitourinary: No Immune Disorder: No Musculoskeletal: No Neurologic: No Psychiatric: Yes Reproductive: No Respiratory: Yes (CHILDHOOD ASTHMA ) Immunizations Current: Yes Sleep Apnea: No Thyroid Disease: No Past Surgical History Surgical History: No Previous Surgery Other Surgery: No Social History Alcohol Use: Yes (OCCASIONALLY) Tobacco Use: No Substance Use: No Allergies-Medications (Allergen,Severity, Reaction): Coded Allergies: mushroom (Unverified Allergy, Severe, Nausea/Vomiting, 10/22/17) Reported Meds & Prescriptions Reported Meds & Active Scripts Active Protonix (Pantoprazole Sodium) 40 Mg Tab 40 Mg PO DAILY Review of Systems Except as stated in HPI: all other systems reviewed are Neg Physical Exam Narrative GENERAL: Well-developed, well-nourished, comfortable, no apparent distress. SKIN: Focused skin assessment warm/dry. HEAD: Atraumatic. Normocephalic. EYES: Pupils equal and round. No scleral icterus. No injection or drainage. ENT: No nasal bleeding or discharge. Mucous membranes pink and moist. Normal pharynx. NECK: Trachea midline. No JVD. CARDIOVASCULAR: Regular rate and rhythm. No murmur appreciated. RESPIRATORY: No accessory muscle use. Clear to auscultation. Breath sounds equal bilaterally. GASTROINTESTINAL: Abdomen soft, non-tender, nondistended. MUSCULOSKELETAL: No obvious deformities. No clubbing. No cyanosis. No edema. NEUROLOGICAL: Awake and alert. No obvious cranial nerve deficits. Motor grossly within normal limits. Normal speech. PSYCHIATRIC: Appropriate mood and affect; insight and judgment normal. Data Data Last Documented VS Vital Signs Date Time Temp Pulse Resp B/P (MAP) Pulse Ox O2 Delivery O2 Flow Rate FiO2 10/22/17 23:11 98.3 87 18 137/88 (104) 98 MDM Medical Decision Making Medical Screen Exam Complete: Yes Emergency Medical Condition: Yes Differential Diagnosis Work release Narrative Course Vital signs are within normal limits. The patient is afebrile. This is a 22-year-old male who is here requesting a note to go back to work. I evaluated him on 10/16/17, and he has not been to work since. He would like to go back to work on Friday. In my opinion he is able to go to work. His physical exam is essentially unremarkable. Diagnosis Primary Impression: Return to work evaluation Referrals: [facility] 3 days Disposition: 01 DISCHARGE HOME Condition: Stable Raul Reno MD Oct 22, 2017 23:38
== END 2017-10-23 | disposition home or self-care (01) ==
LOC: NEPD 22:24
DX: Z76.89 Persons encountering health services in other specified circumstances (principal); F41.9 Anxiety disorder, unspecified; E78.00 Pure hypercholesterolemia, unspecified; Z79.899 Other long term (current) drug therapy
CPT/HCPCS: 99281